=== PATIENT | male | born 1990 | race Caucasian/White ===

== ENCOUNTER 2018-08-12 12:34 | Emergency (ER) | payer MEDICARE, OTHER ==
[2018-08-12] MEDS ORDERED: DEXAMETHASONE SOD PHOSPHATE 10MG/ML 1ML VIAL ONE (13:00)
== END 2018-08-12 13:24 | disposition home or self-care (01) ==
LOC: EDH 12:34
DX: M70.21 Olecranon bursitis, right elbow (principal); K21.9 Gastro-esophageal reflux disease without esophagitis; Z72.0 Tobacco use; W22.042A Striking against wall of swimming pool causing other injury, initial encounter; Y93.11 Activity, swimming; Y92.34 Swimming pool (public) as the place of occurrence of the external cause; Y99.8 Other external cause status
CPT/HCPCS: 73080; 96372; 99284; J1100